=== PATIENT | male | born 1940 | race Caucasian/White ===

== ENCOUNTER 2023-10-23 10:17 | Emergency (ER) | payer OTHER, MEDICARE, SELFPAY ==
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
[2023-10-23 10:25] VITALS: BP 163/81; PULSE 71; O2SAT 97
[2023-10-23 10:31] VITALS: BP 163/67; PULSE 70; RESP 19; TEMP 36.6; O2SAT 97; BMI 28.0
[2023-10-23 11:20] VITALS: BP 175/60; PULSE 69; RESP 16; O2SAT 97
[2023-10-23 11:27] LABS: MANUAL DIFF FLAG NO
[2023-10-23 11:31] LABS: Basophils Percent Auto 0.4 % (0-2); Eosinophils Percent Auto 0.6 % (0-4); Hematocrit 46.5 % (42.0-52.0); Hemoglobin 15.5 g/dl (14.0-18.0); Imm Gran Abs Auto 0.03 X10*3/uL (0.00-0.03); Imm Gran Pct Auto 0.4 % (0.0-0.4); Lymphocytes Absolute Auto 1.3 X10*3/uL (1.2-4.9); Lymphocytes Percent Auto 18.6 % (20-40); Mean Corpuscular HGB Conc 33.3 g/dl (31.0-36.0); Mean Corpuscular Hemoglobin 31.4 pg (27.0-33.0); Mean Corpuscular Volume 94.3 fL (80.0-98.0); Mean Platelet Volume 12.3 fL (9.4-12.4); Monocytes Absolute Auto 0.6 X10*3/uL (0.1-1.2); Monocytes Percent Auto 8.3 % (2-11); Neutrophils Percent Auto 71.7 % (45-73); Platelet Count 142 X10*3/uL (160-400); Red Blood Count 4.93 X10*6/uL (4.60-5.80); Red Cell Distribution Width 14.4 % (11.0-16.0); White Blood Count 6.9 X10*3/uL (4.8-10.8)
[2023-10-23 11:41] LABS: Prothrombin Time 24.2 SEC (11.1-13.3)
[2023-10-23 11:44] LABS: Alanine Aminotransferase 14 U/L (0-40); Albumin Level 3.8 g/dL (3.5-5.0); Alkaline Phosphatase 84 U/L (39-117); Anion Gap 11 (12-20); Aspartate Amino Transferase 20 U/L (5-37); Bilirubin Total 0.7 mg/dL (0.0-1.0); Blood Urea Nitrogen 20 mg/dL (9-16); Calcium 9.1 mg/dL (8.4-10.2); Carbon Dioxide 26 mmol/L (22-29); Chloride 109 mmol/L (96-108); Creatinine Clr Calc Pharmacy 87.4; Estimated Glomerular Filt Rate > 60; Glucose Random 98 mg/dL (60-115); Magnesium 2.1 mg/dL (1.6-2.6); Partial Thromboplastin Time 35.2 SEC (26.0-36.4); Sodium 142 mmol/L (135-145); Total Protein 7.2 g/dL (6.5-8.0)
[2023-10-23] MEDS: iohexoL 350 MG/ML 100 ML INFUS..BTL 85 ML IV (13:12)
[2023-10-23 14:16] VITALS: BP 145/68; PULSE 70; RESP 20; O2SAT 95
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
[2023-10-23 15:36] VITALS: BP 155/76; PULSE 76; RESP 15; O2SAT 98
== END 2023-10-23 15:36 | disposition home or self-care (01) ==
PROVIDERS: Physician Assistant Medical; Emergency Provider Emergency Medicine; PCP Internal Medicine
DX: S29.9XXA Unspecified injury of thorax, initial encounter (principal); S50.312A Abrasion of left elbow, initial encounter; R51.9 Headache, unspecified; M54.2 Cervicalgia; R07.89 Other chest pain; R10.2 Pelvic and perineal pain; V43.52XA Car driver injured in collision with other type car in traffic accident, initial encounter; Y93.9 Activity, unspecified; Y92.410 Unspecified street and highway as the place of occurrence of the external cause; Y99.9 Unspecified external cause status
CPT/HCPCS: 36415; 70450; 71260; 72125; 74177; 80053; 83735; 85025; 85610; 85730; 86850; 86900; 86901; 99284; Q9967